=== PATIENT | female | born 1960 | race Caucasian/White ===

== ENCOUNTER 2019-05-20 22:18 | Emergency (ER) | payer BC ==
--- OUTSIDE RECORDS SUMMARY | 2019-05-20 22:20 | XMS REPORT | Clinical Summary ---
:1960 Author Organization [facility] Address [address] [place] [id number] Care Team Providers Name Role Phone Bree Kumar SOLOIST DANCER-C Primary Care Provider Allergies Active Allergy Reactions Severity Noted Date Comments Sulfa (Sulfonamide Antibiotics) Hives High 10/24/2016 Medications Not on file Active Problems Not on file Social History Tobacco Use Types Packs/Day Years Used Date Never Assessed Sex Assigned at Date Recorded Not on file Job Start Date Occupation Industry Not on file Not on file Not on file Travel History Travel Start Travel End No recent travel history available. Last Filed Vital Signs Not on file Plan of Treatment Health Maintenance Due Date Last Done Comments BREAST CANCER SCREENING 2011 COLONOSCOPY SCREENING 2011 SHINGLES VACCINES (#1) 2011 INFLUENZA VACCINE 05/12/2019 Results Not on fileafter 05/19/2018 Advance Directives Patient has advance care planning documents on file. For more information, please contact:[facility] [place] [address]
--- OUTSIDE RECORDS SUMMARY | 2019-05-20 22:21 | XMS REPORT ---
:1960 Author Organization eClinicalWorks Care Team Providers Name Role Phone Lynn Cervantes Provider Role Unavailable Allergies, Adverse Reactions, Alerts Substance Reaction Event Type Sulfa Info Not Available Drug Allergy Problems Problem Type Condition Code Onset Dates Condition Status Assessment Migraine without aura and with G43.001 Active status migrainosus, not intractable Problem Sinus problem J34.9 Active Problem Hyperlipidemia E78.5 Active Problem Allergic rhinitis J30.9 Active Problem Migraine without aura and with G43.001 Active status migrainosus, not intractable Problem Diverticular disease K57.90 Active Problem Obstructive sleep apnea G47.33 Active Problem Hypertension I10 Active Problem Hypothyroidism E03.9 Active Medications Medication Code Code Instructions Start End Status Dosage System Date Date Aspirin Adult [facility] 78957661790 81 MG Orally Active 1 tablet Low Dose Once a day Synthroid [facility] 56684334258 112 MCG Orally Active 1 tablet Once a day on an empty stomach in the morning Vitamin B [facility] 29101349677 - Orally Active not Complex defined Milk Thistle [facility] 17179655961 500 MG Orally Active not defined Lisinopril [facility] 95514130574 10 MG Orally Active 1 tablet Once a day Verner Thyroid [facility] 36180952753 15 MG Orally Active 1 tablet Once a day on an empty stomach Vitamin C [facility] 91566243618 500 MG Orally Active not defined Vitamin D [facility] [address]-76 400 UNIT Orally Active 2 capsules Once a day Probiotic [facility] 35966027863 - Orally Active not defined Liothyronine ND 47322533906 5 MCG Orally Active 1 tablet Sodium Once a day on an empty stomach Co Q 10 [facility] 86107805173 10 MG Orally Active 1 capsule Once a day with a meal Results No Known Results Summary Purpose eClinicalWorks Submission
--- OUTSIDE RECORDS SUMMARY | 2019-05-20 22:21 | XMS REPORT ---
:1960 Author Organization [facility] Address [address] [place] [address] Dr. Yadav [address] [place] [id number] Care Team Providers Name Role Phone Unavailable Unavailable Unavailable Problems This patient has no known problems. Allergies, Adverse Reactions, Alerts This patient has no known allergies or adverse reactions. Medications This patient has no known medications.
[2019-05-20] MEDS ORDERED: SUCRALFATE 1 GM TABLET ONE (23:09)
[2019-05-20 23:26] LABS: Urine Blood TRACE (NEG); Urine Glucose NEGATIVE (NEG); Urine Protein NEGATIVE (NEG)
[2019-05-20 23:37] LABS: Urine Bacteria <20 /HPF (<20); Urine Culture Reflex Order NOT NEEDED; Urine RBC <5 /HPF (NONE SEEN)
[2019-05-20] MEDS ORDERED: MECLIZINE HCL 12.5 MG TAB ONE (23:53)
--- NOTE | 2019-05-21 01:15 | ER ---
Nurse's Notes [facility] Name: Coreen Albright Age: 59 yrs Sex: Female : 1960 Arrival Date: 05/20/2019 Time: 22:21 Bed 18 Private MD: Diagnosis: Headache;Dizziness and giddiness Presentation: 05/20 22:35 Presenting complaint: Patient states: I am having headache at the back of my head for 2 rr5 weeks now pain score 4/10, went to my doctor and gave me Vanadol ( pain medication and anti inflammatory medicine I can't remember the name. accompanied by dizziness and high blood pressure max of 170/116mmHg. 22:35 Transition of care: patient was not received from another setting of care. Onset of rr5 symptoms was April 2019. Risk Assessment: Do you want to hurt yourself or someone else? Patient reports no desire to harm self or others. Initial Sepsis Screen: Does the patient meet any 2 criteria? No. Patient's initial sepsis screen is negative. Does the patient have a suspected source of infection? No. Patient's initial sepsis screen is negative. Care prior to arrival: None. 22:35 Method Of Arrival: Ambulatory rr5 22:35 Acuity: JEANNE 3 rr5 Triage Assessment: 22:35 Headache History: The patient has had previous headaches and this one is less severe rr5 than previous episodes. General: Appears in no apparent distress. comfortable, Behavior is calm, cooperative, appropriate for age. Pain: Complains of pain in head Pain does not radiate. Pain Quality of pain is described as aching, Pain began gradually, Is intermittent. Pain: Also complains of dizziness. Historical: - Allergies: 22:55 Sulfa (Sulfonamide Antibiotics); rr5 - Home Meds: 22:55 lisinopril Oral [Active]; THYROID MEDICATION [Active]; rr5 - PMHx: 22:55 Hypertension; Thyroid problem; rr5 - PSHx: 22:55 Cholecystectomy; pituitary tumor; tube ligation; uterine ablation; breast surgery; hand rr5 surgery; - Immunization history:: Adult Immunizations unknown. - Social history:: Smoking status: Patient/guardian denies using tobacco, Patient/guardian denies using alcohol, street drugs. - Ebola Screening: : Patient negative for fever greater than or equal to 101.5 degrees Fahrenheit, and additional compatible Ebola Virus Disease symptoms Patient denies exposure to infectious person Patient denies travel to an Ebola-affected area in the 21 days before illness onset. Screenin:55 Abuse screen: Denies threats or abuse. Denies injuries from another. Nutritional rr5 screening: No deficits noted. Tuberculosis screening: No symptoms or risk factors identified. Fall Risk None identified. Total Sales Fall Scale indicates No Risk (0-24 pts). Assessment: 22:35 General: Appears in no apparent distress. comfortable, Behavior is calm, cooperative, rr5 appropriate for age. 22:35 Pain: Complains of pain in head Pain does not radiate. Pain currently is 4 out of 10 on rr5 a pain scale. Quality of pain is described as aching, Pain began gradually, Is intermittent. Neuro: Level of Consciousness is awake, alert, obeys commands, Oriented to person, place, time, situation, Appropriate for age Reports dizziness, headache. Cardiovascular: Reports High BP Capillary refill < 3 seconds Patient's skin is warm and dry. Cardiovascular: Capillary refill < 3 seconds Patient's skin is warm and dry. Respiratory: Airway is patent Respiratory effort is even, unlabored, Respiratory pattern is regular, symmetrical. GI: No signs and/or symptoms were reported involving the gastrointestinal system. : No signs and/or symptoms were reported regarding the genitourinary system. EENT: No signs and/or symptoms were reported regarding the EENT system. Derm: Skin is intact, Skin temperature is warm. Musculoskeletal: Circulation, motion, and sensation intact. Capillary refill < 3 seconds. 23:40 Reassessment: Patient appears in no apparent distress at this time. Patient is alert, rr5 oriented x 3, equal unlabored respirations, skin warm/dry/pink. medication given as stat dose for the headache.awaiting for CT of head procedure. 05/21 00:50 Reassessment: Patient appears in no apparent distress at this time. Patient is alert, rr5 oriented x 3, equal unlabored respirations, skin warm/dry/pink. awaiting for CT result. 01:15 Reassessment: Patient appears in no apparent distress at this time. Patient is alert, rr5 oriented x 3, equal unlabored respirations, skin warm/dry/pink. discharge instruction given and explained to sales center associate without complaints made. Patient states feeling better. Patient states symptoms have improved. Vital Signs: 05/20 22:35 BP 144 / 74; Pulse 87; Resp 17; Temp 98.8; Pulse Ox 97% ; Weight 113.4 kg; Height 5 ft. rr5 6 in. (167.64 cm); Pain 4/10; 23:45 BP 135 / 89; Pulse 80; Resp 17; Pulse Ox 99% ; rr5 05/21 00:30 BP 131 / 85; Pulse 71; Resp 18; Pulse Ox 98% ; Pain 4/10; rr5 01:30 BP 125 / 70; Pulse 75; Resp 17; Temp 98; Pulse Ox 99% ; Pain 2/10; rr5 05/20 22:35 Body Mass Index 40.35 (113.40 kg, 167.64 cm) rr5 ED Course: 05/20 22:21 Patient arrived in ED. ds1 22:33 Ele Cardenas FNP-C [facility] snw 22:33 Porter Dean MD is Attending Physician. snw 22:35 Arm band placed on. rr5 22:39 Lalo Padilla, TRAVIS is Primary Nurse. rr5 22:42 Triage completed. rr5 22:55 Patient has correct armband on for positive identification. Bed in low position. Call rr5 light in reach. Side rails up X2. Pulse ox on. NIBP on. 05/21 00:17 CT completed. Patient tolerated procedure well. Patient moved to CT via wheelchair. eh Patient moved back from CT. 00:24 CT Head Brain wo Cont In Process Unspecified. EDMS 01:18 No provider procedures requiring assistance completed. Patient did not have IV access rr5 during this emergency room visit. Administered Medications: 05/20 23:34 Drug: CarafATE 1 grams Route: PO; rr5 05/21 00:30 Follow up: Response: No adverse reaction rr5 05/20 23:53 Drug: Meclizine 50 mg Route: PO; rr5 05/21 00:50 Follow up: Response: No adverse reaction; Pain is decreased rr5 Outcome: 01:14 Discharge ordered by . snw 01:18 Discharged to home ambulatory. rr5 01:18 Condition: stable 01:18 Discharge instructions given to patient, Instructed on discharge instructions, follow up and referral plans. medication usage, Demonstrated understanding of instructions, follow-up care, medications, Prescriptions given X 1. 01:30 Patient left the ED. rr5 Signatures: Dispatcher [employer] EDMS Ele Cardenas, TURN OPERATOR-C TURN OPERATOR-Csnw Ron Torres Demi ds1 Lalo Padilla, RN RN rr5
--- NOTE | 2019-05-21 01:16 | EDPHYS ---
Physician Documentation [facility] Name: Coreen Albright Age: 59 yrs Sex: Female : 1960 Arrival Date: 05/20/2019 Time: 22:21 Bed 18 Private MD: ED Physician Porter Dean HPI: 05/21 01:36 This 59 yrs old Female presents to ER via Ambulatory with complaints of High snw Blood Pressure, Headache. 01:36 The patient complains of pain to the occipital. The patient describes the headache as a snw pressure. Onset: The symptoms/episode began/occurred 2 week(s) ago, and became persistent. Associated signs and symptoms: Pertinent positives: intermittent dizziness, nausea, . Severity of symptoms: At its worst the pain was moderate, in the emergency department the pain has improved. Headache History: The patient has had previous headaches. The patient has experienced similar episodes in the past, a few times. The patient has been recently seen by a physician: the patient's primary care provider, with similar presenting complaints, was given a prescription for pain medications, but the patient's symptoms have persisted. Historical: - Allergies: 05/20 22:55 Sulfa (Sulfonamide Antibiotics); rr5 - Home Meds: 22:55 lisinopril Oral [Active]; THYROID MEDICATION [Active]; rr5 - PMHx: 22:55 Hypertension; Thyroid problem; rr5 - PSHx: 22:55 Cholecystectomy; pituitary tumor; tube ligation; uterine ablation; breast surgery; hand rr5 surgery; - Immunization history:: Adult Immunizations unknown. - Social history:: Smoking status: Patient/guardian denies using tobacco, Patient/guardian denies using alcohol, street drugs. - Ebola Screening: : Patient negative for fever greater than or equal to 101.5 degrees Fahrenheit, and additional compatible Ebola Virus Disease symptoms Patient denies exposure to infectious person Patient denies travel to an Ebola-affected area in the 21 days before illness onset. ROS: 05/21 01:34 Constitutional: Negative for fever, chills, and weight loss, Eyes: Negative for injury, snw pain, redness, and discharge, Neck: Negative for injury, pain, and swelling, Cardiovascular: Negative for chest pain, palpitations, and edema, Respiratory: Negative for shortness of breath, cough, wheezing, and pleuritic chest pain, Abdomen/GI: Negative for abdominal pain, nausea, vomiting, diarrhea, and constipation, Back: Negative for injury and pain, : Negative for injury, bleeding, discharge, and swelling, MS/Extremity: Negative for injury and deformity, Skin: Negative for injury, rash, and discoloration. ENT: Positive for hearing loss, tinnitus, in left ear for some time. Neuro: Positive for dizziness, headache, of the scalp. Exam: 01:33 Constitutional: This is a well developed, well nourished patient who is awake, alert, snw and in no acute distress. Head/Face: Normocephalic, atraumatic. Eyes: Pupils equal round and reactive to light, extra-ocular motions intact. Lids and lashes normal. Conjunctiva and sclera are non-icteric and not injected. Cornea within normal limits. Periorbital areas with no swelling, redness, or edema. Neck: Trachea midline, no thyromegaly or masses palpated, and no cervical lymphadenopathy. Supple, full range of motion without nuchal rigidity, or vertebral point tenderness. No Meningismus. Chest/axilla: Normal chest wall appearance and motion. Nontender with no deformity. No lesions are appreciated. Cardiovascular: Regular rate and rhythm with a normal S1 and S2. No gallops, murmurs, or rubs. Normal PMI, no JVD. No pulse deficits. Respiratory: Lungs have equal breath sounds bilaterally, clear to auscultation and percussion. No rales, rhonchi or wheezes noted. No increased work of breathing, no retractions or nasal flaring. Abdomen/GI: Soft, non-tender, with normal bowel sounds. No distension or tympany. No guarding or rebound. No evidence of tenderness throughout. Back: No spinal tenderness. No costovertebral tenderness. Full range of motion. Skin: Warm, dry with normal turgor. Normal color with no rashes, no lesions, and no evidence of cellulitis. MS/ Extremity: Pulses equal, no cyanosis. Neurovascular intact. Full, normal range of motion. Psych: Awake, alert, with orientation to person, place and time. Behavior, mood, and affect are within normal limits. :33 ENT: TM's: are normal, hearing loss and tinnitus hx in left ear. 01:33 ENT: Mouth: Oral mucosa: dry. 01:33 Neuro: Orientation: is normal, Mentation: is normal, Memory: is normal, Motor: is normal, Gait: is steady, seizure activity, is not displayed by the patient, Abnormal movements: there are no abnormal movements. Vital Signs: 05/20 22:35 BP 144 / 74; Pulse 87; Resp 17; Temp 98.8; Pulse Ox 97% ; Weight 113.4 kg; Height 5 ft. rr5 6 in. (167.64 cm); Pain 4/10; 23:45 BP 135 / 89; Pulse 80; Resp 17; Pulse Ox 99% ; rr5 05/21 00:30 BP 131 / 85; Pulse 71; Resp 18; Pulse Ox 98% ; Pain 4/10; rr5 01:30 BP 125 / 70; Pulse 75; Resp 17; Temp 98; Pulse Ox 99% ; Pain 2/10; rr5 05/20 22:35 Body Mass Index 40.35 (113.40 kg, 167.64 cm) rr5 MDM: 05/20 22:48 Patient medically screened. snw 05/20 22:34 Order name: Urine Culture snw 05/20 22:34 Order name: Urine Microscopic Only; Complete Time: 23:41 snw 05/20 23:16 Order name: Urine Dipstick--Ancillary (enter results); Complete Time: 23:41 ar5 05/20 23:41 Order name: CT Head Brain wo Cont snw 05/20 22:34 Order name: Urine Dipstick-Ancillary (obtain specimen); Complete Time: 23:25 snw Administered Medications: 23:34 Drug: CarafATE 1 grams Route: PO; rr5 05/21 00:30 Follow up: Response: No adverse reaction rr5 05/20 23:53 Drug: Meclizine 50 mg Route: PO; rr5 05/21 00:50 Follow up: Response: No adverse reaction; Pain is decreased rr5 Disposition: 02:19 Co-signature as Attending Physician, Porter Dean MD. pkl Disposition: 05/21/19 01:14 Discharged to Home. Impression: Headache, Dizziness and giddiness. - Condition is Stable. - Discharge Instructions: Dizziness, General Headache Without Cause, Hypertension, Aroldo Maneuver Self-Care, Rehydration, Adult. - Prescriptions for orphenadrine citrate 100 mg Oral Tablet Sustained Release - take 1 tablet by ORAL route 2 times per day As needed; 20 tablet. - Work release form, Medication Reconciliation Form, Thank You Letter, Antibiotic Education, Prescription Opioid Use form. - Follow up: Private Physician; When: 2 - 3 days; Reason: Recheck today's complaints, Continuance of care, Re-evaluation by your physician. Follow up: Emergency Department; When: As needed; Reason: Worsening of condition. Signatures: Dispatcher [employer] EDLA Porter Dean MD MD pkEle Rockwell, LEARNING DEVELOPMENT SPECIALIST-C LEARNING DEVELOPMENT SPECIALIST-Csnw Lalo Padilla, RN RN rr5 Corrections: (The following items were deleted from the chart) 01:30 01:14 05/21/2019 01:14 Discharged to Home. Impression: Headache; Dizziness and rr5 giddiness. Condition is Stable. Forms are Medication Reconciliation Form, Thank You Letter, Antibiotic Education, Prescription Opioid Use. Follow up: Private Physician; When: 2 - 3 days; Reason: Recheck today's complaints, Continuance of care, Re-evaluation by your physician. Follow up: Emergency Department; When: As needed; Reason: Worsening of condition. snw
[2019-05-21 01:57] VITALS: TEMP 98.8
[2019-05-21 01:59] VITALS: BP 135/89; O2SAT 99
--- NOTE | 2019-05-23 13:20 | RAD REPORT ---
EXAM DESCRIPTION: Head Brain Wo Cont CLINICAL HISTORY: 59 years Female headache; Dizziness COMPARISON: None TECHNIQUE: Contiguous axial images of the brain were obtained without the administration of intraven ous contrast.This exam was performed according to our departmental dose-optimization program which in cludes use of Automated Exposure Control, adjustment of the mA and/or kV according to patient size an d/or use of iterative reconstruction technique. FINDINGS: Brain: No acute intracranial hemorrhage. No acute territorial infarct. No extra-axial rick ection. No mass effect or herniation. Ventricles: Within normal limits in size. Occipital horns are slightly asymmetric, nonspecific. Globes and orbits: No acute abnormality. Bones: No acute osseous finding. Paranasal sinuses: Paranasal sinuses are clear. Mastoid air cells: Well pneumatized.. Soft tissues: Within normal limits IMPRESSION: No acute intracranial abnormality. Electronically signed by: Rito Guerra DO 05/21/2019 12:22 AM CDT Due to temporary technical issues with the PACS/Fluency reporting system, reports are being signed by the in house radiologist as a courtesy to ensure prompt reporting. The interpreting radiologist is f ully responsible for the content of the report.
== END 2019-05-21 01:30 | disposition home or self-care (01) ==
LOC: ER 22:18
DX: R51 Headache (principal); R42 Dizziness and giddiness; I10 Essential (primary) hypertension; Z88.2 Allergy status to sulfonamides
CPT/HCPCS: 70450; 81003; 81015; 87086; 87088; 99284